=== PATIENT | female | born 1975 | race Caucasian/White ===

== ENCOUNTER 2019-04-11 15:40 | Inpatient (IN) | payer BC ==
[~2019-04-11] VITALS: Ht 177.8 cm; Wt 106.9 kg
[2019-04-12 00:30] VITALS: BP 142/80; PULSE 94; RESP 18
[2019-04-12 01:22] VITALS: Ht 177.8 cm; Wt 106.9 kg
[2019-04-12] MEDS ORDERED: ACETAMINOPHEN 325 MG TAB PO PRN (02:00)
[2019-04-12] MEDS ORDERED: PENDING SANTYL ORDER FOR WOUND CARE XX PRN (02:00)
[2019-04-12] MEDS ORDERED: LACTULOSE 30ML CUP PO PRN (02:00)
[2019-04-12] MEDS ORDERED: ALBUTEROL HFA 8 GM INHALER INH PRN (02:00)
[2019-04-12] MEDS ORDERED: BISACODYL 10 MG SUPP PR PRN (02:00)
[2019-04-12] MEDS ORDERED: MAGNESIUM HYDROXIDE 30ML CUP PO PRN (02:00)
[2019-04-12] MEDS ORDERED: METHOCARBAMOL 500 MG TAB PO ONE (02:00)
[2019-04-12] MEDS ORDERED: HYDROmorphONE 0.5 MG/0.5 ML SYG IV PRN (02:00)
[2019-04-12] MEDS: OXYCODONE/ACETAMINOPHEN (5/325) TAB PO PRN ×5 (02:25→22:40)
[2019-04-12 03:22] VITALS: BP 110/60; PULSE 64; RESP 18
[2019-04-12] MEDS: GABAPENTIN 300 MG CAP PO SCH ×3 (06:20→22:05)
[2019-04-12] MEDS: LEVOTHYROXINE 175 MCG TAB PO SCH (06:20)
[2019-04-12 07:30] VITALS: BP 147/83; PULSE 92; RESP 18
[2019-04-12] MEDS: DOCUSATE SODIUM 100 MG CAP PO SCH ×2 (08:38→22:05)
[2019-04-12] MEDS: POLYETHYLENE GLYCOL 17 GM PACKET PO SCH (08:38)
[2019-04-12] MEDS: FAMOTIDINE 20 MG TAB PO SCH ×2 (08:39→22:05)
[2019-04-12] MEDS ORDERED: FERROUS SULFATE (EC) 325 MG TAB PO SCH (09:00)
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
[2019-04-12 14:00] VITALS: BP 136/78; PULSE 86; RESP 20
[2019-04-12 19:57] VITALS: BP 120/69; PULSE 90; RESP 18
[2019-04-12] MEDS: FERROUS SULFATE (EC) 325 MG TAB PO SCH (22:05)
[2019-04-12] MEDS: SENNA TAB PO SCH (22:05)
[2019-04-13 02:00] VITALS: BP 138/67; PULSE 93; RESP 18
[2019-04-13] MEDS: OXYCODONE/ACETAMINOPHEN (5/325) TAB PO PRN ×5 (02:58→22:34)
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
[2019-04-13] MEDS: LEVOTHYROXINE 175 MCG TAB PO SCH (06:51)
[2019-04-13] MEDS: GABAPENTIN 300 MG CAP PO SCH ×3 (06:51→21:43)
[2019-04-13 07:37] VITALS: BP 125/77; PULSE 92; RESP 20
[2019-04-13] MEDS: POLYETHYLENE GLYCOL 17 GM PACKET PO SCH (08:50)
[2019-04-13] MEDS: DOCUSATE SODIUM 100 MG CAP PO SCH ×2 (08:50→21:43)
[2019-04-13] MEDS: METHOCARBAMOL 750 MG TAB PO PRN (08:50)
[2019-04-13] MEDS: FERROUS SULFATE (EC) 325 MG TAB PO SCH ×2 (08:51→21:43)
[2019-04-13] MEDS: FAMOTIDINE 20 MG TAB PO SCH ×2 (08:51→21:43)
--- NOTE | 2019-04-13 12:50 | PN ---
Date/Time of Note Date/Time of Note DATE: 04/13/19 TIME: 12:39 Objective Vital Signs Date Temp Pulse Resp B/P (MAP) Pulse Ox O2 O2 Flow FiO2 Time Delivery Rate 04/13/19 98.0 92 20 125/77 97 Room Air 07:37 (93) Intake and Output 04/12/19 04/12/19 04/13/19 1414:59 22:59 06:59 IntakeIntake Total 680 ml 790 ml BalanceBalance 680 ml 790 ml Exam INTERDISCIPLINARY TEAM CONFERENCE Attended by PT, OT, ST, Social Work, Rehabilitation Nursing, Handicrafts Teacher and Corporate ExecutiveGround Helper [employer] Railway Exam: Pulm- cta Abd- soft BOWEL- Cont BLADDER-Cont SKIN- multiple abrasions, residual limb dressing in place OT- DRESSING- sba/mod BATHING- mod TOILETING- mod PT- BED MOBILITY-cga TRANSFERS-cga WHEELCHAIR-min A/P- Interdisciplinary team conference held today. Please see interdisciplinary sheet. Working toward d.c. on 04/26 with post discharge follow up of physical therapy, occupational therapy. Results/Medications Result Diagram: 04/12/19 0639 04/12/19 0639 Medications Current Medications Docusate Sodium (Colace) 100 mg BID PO Last administered on 04/13/19at 08:50; Admin Dose 100 MG; Start 04/12/19 at 09:00 Senna (Senokot) 1 tab HS PO Last administered on 04/12/19at 22:05; Admin Dose 1 TAB; Start 04/12/19 at 21:00 Magnesium Hydroxide (Milk Of Mag) 30 ml BID PRN PO CONSTIPATION; Start 04/12/19 at 02:00 Lactulose (Enulose) 20 gm DAILY PRN PO CONSTIPATION; Start 04/12/19 at 02:00 Bisacodyl (Dulcolax Supp) 10 mg DAILY PRN [place] CONSTIPATION; Start 04/12/19 at 02:00 Acetaminophen (Tylenol Tab) 650 mg Q4H PRN PO PAIN; Start 04/12/19 at 02:00 [facility] This patient ovalle... PRN PRN XX WOUND CARE; Start 04/12/19 at 02:00 Hydromorphone HCl (Dilaudid) 0.5 mg Q6H PRN IV BREAKTHROUGH PAIN; Start 04/12/19 at 02:00 Oxycodone/ Acetaminophen (Percocet (5/ 325)) 2 tab Q4H PRN PO MODERATE PAIN LEVEL 4-6 Last administered on 04/13/19at 11:00; Admin Dose 2 TAB; Start 04/12/19 at 02:00 Famotidine (Pepcid) 20 mg BID PO Last administered on 04/13/19 08:51; Admin Dose 20 MG; Start 04/12/19 at 09:00 Albuterol (Ventolin Hfa) 2 puff Q4H RESP THERAPY PRN INH SHORTNESS OF BREATH; Start 04/12/19 at 02:00 Gabapentin (Neurontin) 300 mg Q8 PO Last administered on 04/13/19 06:51; Admin Dose 300 MG; Start 04/12/19 at 06:00 Levothyroxine Sodium (Synthroid) 175 mcg DAILY@06 PO Last administered on 04/13/19 06:51; Admin Dose 175 MCG; Start 04/12/19 at 06:00 Polyethylene Glycol (Miralax) 17 gm DAILY PO Last administered on 04/13/19 08:50; Admin Dose 17 GM; Start 04/12/19 at 09:00 Methocarbamol (Robaxin) 750 mg TID PRN PO MUSCLE SPASMS Last administered on 04/13/19 08:50; Admin Dose 750 MG; Start 04/12/19 at 12:00 Ferrous Sulfate (Ferrous Sulfate (Ec)) 325 mg BID PO Last administered on 04/13/19 08:51; Admin Dose 325 MG; Start 04/12/19 at 21:00 Oxycodone HCl (Oxycontin) 10 mg TID PO ; Start 04/13/19 at 13:00 ANJELICA CANCHOLA MD Apr 13, 2019 12:50
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
[2019-04-13] MEDS: oxyCODONE (CR) 10 MG TAB [oxyCONTIN] PO SCH ×2 (14:24→21:43)
[2019-04-13 14:41] VITALS: BP 132/72; PULSE 89; RESP 20
[2019-04-13 19:46] VITALS: BP 119/64; PULSE 92; RESP 17
[2019-04-13] MEDS: SENNA TAB PO SCH (21:44)
[2019-04-14] MEDS: OXYCODONE/ACETAMINOPHEN (5/325) TAB PO PRN ×4 (04:46→19:36)
[2019-04-14] MEDS: GABAPENTIN 300 MG CAP PO SCH ×3 (06:07→21:00)
[2019-04-14] MEDS: LEVOTHYROXINE 175 MCG TAB PO SCH (06:07)
[2019-04-14 07:30] VITALS: BP 117/74; PULSE 92; RESP 20
[2019-04-14] MEDS: DOCUSATE SODIUM 100 MG CAP PO SCH ×2 (09:27→20:54)
[2019-04-14] MEDS: FERROUS SULFATE (EC) 325 MG TAB PO SCH ×2 (09:27→20:54)
[2019-04-14] MEDS: FAMOTIDINE 20 MG TAB PO SCH ×2 (09:27→20:54)
[2019-04-14] MEDS: oxyCODONE (CR) 10 MG TAB [oxyCONTIN] PO SCH ×3 (09:27→20:54)
[2019-04-14] MEDS: POLYETHYLENE GLYCOL 17 GM PACKET PO SCH (09:28)
[2019-04-14 14:00] VITALS: BP 140/81; PULSE 94; RESP 18
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
[2019-04-14 20:22] VITALS: BP 135/79; PULSE 99; RESP 18
[2019-04-14] MEDS: SENNA TAB PO SCH (20:54)
[2019-04-15 02:00] VITALS: BP 128/74; PULSE 95; RESP 18
[2019-04-15] MEDS: GABAPENTIN 300 MG CAP PO SCH ×3 (06:16→21:07)
[2019-04-15] MEDS: LEVOTHYROXINE 175 MCG TAB PO SCH (06:16)
[2019-04-15] MEDS: OXYCODONE/ACETAMINOPHEN (5/325) TAB PO PRN ×2 (06:16→22:52)
[2019-04-15 07:00] VITALS: BP 135/72; PULSE 98; RESP 18
[2019-04-15] MEDS: FAMOTIDINE 20 MG TAB PO SCH ×2 (08:54→21:08)
[2019-04-15] MEDS: DOCUSATE SODIUM 100 MG CAP PO SCH ×2 (08:55→21:08)
[2019-04-15] MEDS: FERROUS SULFATE (EC) 325 MG TAB PO SCH ×2 (08:55→21:07)
[2019-04-15] MEDS: oxyCODONE (CR) 10 MG TAB [oxyCONTIN] PO SCH ×3 (09:54→21:10)
[2019-04-15] MEDS: POLYETHYLENE GLYCOL 17 GM PACKET PO SCH (09:55)
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
[2019-04-15] MEDS ORDERED: VANCOMYCIN 1.5 GM/NS 250 ML 250 ML IVPB SCH (10:30)
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
[2019-04-15 14:00] VITALS: BP 143/89; PULSE 101; RESP 18
[2019-04-15] MEDS ORDERED: VANCOMYCIN IV PER PHARMACY XX SCH (17:30)
[2019-04-15 19:49] VITALS: BP 126/74; PULSE 98; RESP 18
[2019-04-15] MEDS: SENNA TAB PO SCH (21:07)
[2019-04-15] MEDS ORDERED: VANCOMYCIN HCL 2 GM in SOD CHLORIDE 0.9% 500 ML IVPB ONE (22:30)
[2019-04-15] MEDS: CEFEPIME 1GM/50 ML (PMX) 50 ML IVPB SCH (23:28)
[2019-04-16 02:00] VITALS: BP 129/82; PULSE 99; RESP 18
[2019-04-16] MEDS: OXYCODONE/ACETAMINOPHEN (5/325) TAB PO PRN ×3 (03:38→22:19)
[2019-04-16] MEDS: LEVOTHYROXINE 175 MCG TAB PO SCH (06:53)
[2019-04-16] MEDS: GABAPENTIN 300 MG CAP PO SCH ×3 (06:53→21:11)
[2019-04-16 07:00] VITALS: BP 118/79; PULSE 99; RESP 18
[2019-04-16] MEDS: CEFEPIME 1GM/50 ML (PMX) 50 ML IVPB SCH ×2 (08:34→21:15)
[2019-04-16] MEDS: FAMOTIDINE 20 MG TAB PO SCH ×2 (08:44→21:07)
[2019-04-16] MEDS: FERROUS SULFATE (EC) 325 MG TAB PO SCH ×2 (08:47→21:07)
[2019-04-16] MEDS: oxyCODONE (CR) 10 MG TAB [oxyCONTIN] PO SCH ×3 (08:47→21:07)
[2019-04-16] MEDS: POLYETHYLENE GLYCOL 17 GM PACKET PO SCH (08:47)
[2019-04-16] MEDS: DOCUSATE SODIUM 100 MG CAP PO SCH ×2 (08:48→21:06)
[2019-04-16] MEDS ORDERED: VANCOMYCIN 1.5 GM/NS 250 ML 250 ML IVPB SCH (10:30)
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
[2019-04-16] MEDS: VANCOMYCIN 1.5 GM/NS 250 ML 250 ML IVPB SCH ×2 (10:38→23:05)
[2019-04-16 14:00] VITALS: BP 110/80; PULSE 90; RESP 18
[2019-04-16 20:00] VITALS: BP 121/80; PULSE 96; RESP 18
[2019-04-16] MEDS: SACCHAROMYCES BOULARDII 250 MG CAP PO SCH (21:07)
[2019-04-16] MEDS: SENNA TAB PO SCH (21:07)
[2019-04-16] MEDS: METHOCARBAMOL 750 MG TAB PO PRN (21:11)
[2019-04-17 02:00] VITALS: BP 122/70; PULSE 89; RESP 18
[2019-04-17] MEDS: OXYCODONE/ACETAMINOPHEN (5/325) TAB PO PRN ×3 (03:05→20:47)
[2019-04-17] MEDS: GABAPENTIN 300 MG CAP PO SCH ×3 (06:16→20:55)
[2019-04-17] MEDS: LEVOTHYROXINE 175 MCG TAB PO SCH (06:16)
[2019-04-17 07:00] VITALS: BP 117/57; PULSE 85; RESP 18
[2019-04-17] MEDS: CEFEPIME 1GM/50 ML (PMX) 50 ML IVPB SCH (08:39)
[2019-04-17] MEDS: FAMOTIDINE 20 MG TAB PO SCH ×2 (08:39→20:45)
[2019-04-17] MEDS: FERROUS SULFATE (EC) 325 MG TAB PO SCH ×2 (08:39→20:45)
[2019-04-17] MEDS: SACCHAROMYCES BOULARDII 250 MG CAP PO SCH ×2 (08:39→20:45)
[2019-04-17] MEDS: oxyCODONE (CR) 10 MG TAB [oxyCONTIN] PO SCH ×3 (08:39→21:10)
[2019-04-17] MEDS: DOCUSATE SODIUM 100 MG CAP PO SCH ×2 (08:46→20:45)
[2019-04-17] MEDS: POLYETHYLENE GLYCOL 17 GM PACKET PO SCH (08:47)
[2019-04-17] MEDS ORDERED: VANCOMYCIN LEVEL TROUGH*RX DRUG LEVEL ORDER REMINDER XX ONE (09:30)
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
[2019-04-17] MEDS: VANCOMYCIN 1.5 GM/NS 250 ML 250 ML IVPB SCH (11:39)
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
[2019-04-17 14:00] VITALS: BP 138/84; PULSE 87; RESP 18
[2019-04-17 19:50] VITALS: BP 141/71; PULSE 83; RESP 18
[2019-04-17] MEDS: SENNA TAB PO SCH (20:45)
[2019-04-18 02:28] VITALS: BP 124/74; PULSE 99; RESP 18
[2019-04-18] MEDS: OXYCODONE/ACETAMINOPHEN (5/325) TAB PO PRN ×4 (04:29→19:47)
[2019-04-18] MEDS: GABAPENTIN 300 MG CAP PO SCH ×3 (06:08→21:05)
[2019-04-18] MEDS: LEVOTHYROXINE 175 MCG TAB PO SCH (06:08)
[2019-04-18 07:30] VITALS: BP 127/76; PULSE 95; RESP 18
[2019-04-18] MEDS: SACCHAROMYCES BOULARDII 250 MG CAP PO SCH ×2 (08:42→21:05)
[2019-04-18] MEDS: DOCUSATE SODIUM 100 MG CAP PO SCH ×2 (08:42→21:05)
[2019-04-18] MEDS: FAMOTIDINE 20 MG TAB PO SCH ×2 (08:42→21:05)
[2019-04-18] MEDS: POLYETHYLENE GLYCOL 17 GM PACKET PO SCH (08:44)
[2019-04-18] MEDS: FERROUS SULFATE (EC) 325 MG TAB PO SCH ×2 (08:44→21:05)
[2019-04-18] MEDS: oxyCODONE (CR) 10 MG TAB [oxyCONTIN] PO SCH ×3 (09:55→21:06)
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
[2019-04-18 14:00] VITALS: BP 127/81; PULSE 98; RESP 18
[2019-04-18 20:20] VITALS: BP 126/82; PULSE 99; RESP 18
[2019-04-18] MEDS: SENNA TAB PO SCH (21:05)
[2019-04-19] MEDS: OXYCODONE/ACETAMINOPHEN (5/325) TAB PO PRN ×5 (00:53→19:51)
[2019-04-19 02:32] VITALS: BP 119/76; PULSE 108; RESP 18
[2019-04-19] MEDS: LEVOTHYROXINE 175 MCG TAB PO SCH (04:59)
[2019-04-19] MEDS: GABAPENTIN 300 MG CAP PO SCH ×3 (04:59→21:57)
[2019-04-19] MEDS: POLYETHYLENE GLYCOL 17 GM PACKET PO SCH (08:51)
[2019-04-19 08:52] VITALS: BP 121/63; PULSE 89; RESP 19
[2019-04-19] MEDS: FAMOTIDINE 20 MG TAB PO SCH ×2 (08:52→20:28)
[2019-04-19] MEDS: oxyCODONE (CR) 10 MG TAB [oxyCONTIN] PO SCH ×3 (08:52→21:58)
[2019-04-19] MEDS: FERROUS SULFATE (EC) 325 MG TAB PO SCH ×2 (08:52→20:28)
[2019-04-19] MEDS: SACCHAROMYCES BOULARDII 250 MG CAP PO SCH ×2 (08:52→20:31)
[2019-04-19] MEDS: DOCUSATE SODIUM 100 MG CAP PO SCH ×2 (08:52→20:28)
[2019-04-19] MEDS: METHOCARBAMOL 750 MG TAB PO PRN (08:52)
[2019-04-19] MEDS: MULTIVITAMINS THERAPEUTIC TAB PO SCH (11:00)
[2019-04-19] MEDS: ASCORBIC ACID 500 MG TAB PO SCH (11:00)
[2019-04-19] MEDS: ZINC SULFATE 220 MG CAP PO SCH (11:00)
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
[2019-04-19 14:00] VITALS: BP 118/79; PULSE 75; RESP 20
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
[2019-04-19 20:00] VITALS: BP 126/80; PULSE 81; RESP 19
[2019-04-19] MEDS: SENNA TAB PO SCH (20:28)
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
[2019-04-20] MEDS: OXYCODONE/ACETAMINOPHEN (5/325) TAB PO PRN ×4 (01:56→20:44)
[2019-04-20] MEDS: METHOCARBAMOL 750 MG TAB PO PRN (01:56)
[2019-04-20 02:00] VITALS: BP 121/77; PULSE 75; RESP 18
[2019-04-20] MEDS: oxyCODONE (CR) 10 MG TAB [oxyCONTIN] PO SCH ×3 (06:45→22:43)
[2019-04-20] MEDS: GABAPENTIN 300 MG CAP PO SCH ×3 (06:45→22:42)
[2019-04-20] MEDS: LEVOTHYROXINE 175 MCG TAB PO SCH (06:45)
[2019-04-20 08:00] VITALS: BP 134/89; PULSE 96; RESP 16
[2019-04-20] MEDS: DOCUSATE SODIUM 100 MG CAP PO SCH ×2 (08:39→20:45)
[2019-04-20] MEDS: ZINC SULFATE 220 MG CAP PO SCH (08:40)
[2019-04-20] MEDS: SACCHAROMYCES BOULARDII 250 MG CAP PO SCH ×2 (08:40→20:46)
[2019-04-20] MEDS: FERROUS SULFATE (EC) 325 MG TAB PO SCH ×2 (08:40→20:45)
[2019-04-20] MEDS: ASCORBIC ACID 500 MG TAB PO SCH (08:40)
[2019-04-20] MEDS: MULTIVITAMINS THERAPEUTIC TAB PO SCH (08:40)
[2019-04-20] MEDS: FAMOTIDINE 20 MG TAB PO SCH ×2 (08:41→20:45)
[2019-04-20] MEDS: POLYETHYLENE GLYCOL 17 GM PACKET PO SCH (09:00)
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
[2019-04-20] MEDS: DULOXETINE 30 MG CAP DR PO SCH (12:18)
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
[2019-04-20 19:48] VITALS: BP 132/75; PULSE 79; RESP 18
[2019-04-20] MEDS: SENNA TAB PO SCH (20:45)
[2019-04-21 02:00] VITALS: BP 128/73; PULSE 75; RESP 18
[2019-04-21] MEDS: OXYCODONE/ACETAMINOPHEN (5/325) TAB PO PRN ×5 (04:04→23:19)
[2019-04-21] MEDS: GABAPENTIN 300 MG CAP PO SCH ×3 (06:21→21:18)
[2019-04-21] MEDS: LEVOTHYROXINE 175 MCG TAB PO SCH (06:21)
[2019-04-21] MEDS: oxyCODONE (CR) 10 MG TAB [oxyCONTIN] PO SCH ×3 (06:25→21:19)
[2019-04-21 08:00] VITALS: BP 128/71; PULSE 88; RESP 18
[2019-04-21] MEDS: MULTIVITAMINS THERAPEUTIC TAB PO SCH (08:23)
[2019-04-21] MEDS: FAMOTIDINE 20 MG TAB PO SCH ×2 (08:24→21:18)
[2019-04-21] MEDS: ASCORBIC ACID 500 MG TAB PO SCH (08:24)
[2019-04-21] MEDS: DOCUSATE SODIUM 100 MG CAP PO SCH ×2 (08:24→21:18)
[2019-04-21] MEDS: ZINC SULFATE 220 MG CAP PO SCH (08:24)
[2019-04-21] MEDS: SACCHAROMYCES BOULARDII 250 MG CAP PO SCH ×2 (08:24→21:18)
[2019-04-21] MEDS: DULOXETINE 30 MG CAP DR PO SCH (08:24)
[2019-04-21] MEDS: FERROUS SULFATE (EC) 325 MG TAB PO SCH ×2 (08:24→21:18)
[2019-04-21] MEDS: POLYETHYLENE GLYCOL 17 GM PACKET PO SCH (08:25)
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
[2019-04-21 14:20] VITALS: BP 141/74; PULSE 85; RESP 18
[2019-04-21 19:26] VITALS: BP 139/73; PULSE 85; RESP 18
[2019-04-21] MEDS: SENNA TAB PO SCH (21:18)
[2019-04-21] MEDS: METHOCARBAMOL 750 MG TAB PO PRN (23:19)
[2019-04-22 02:00] VITALS: BP 128/78; PULSE 78; RESP 18
[2019-04-22] MEDS: OXYCODONE/ACETAMINOPHEN (5/325) TAB PO PRN ×4 (04:40→18:20)
[2019-04-22] MEDS: LEVOTHYROXINE 175 MCG TAB PO SCH (06:42)
[2019-04-22] MEDS: oxyCODONE (CR) 10 MG TAB [oxyCONTIN] PO SCH ×3 (06:42→21:46)
[2019-04-22] MEDS: GABAPENTIN 300 MG CAP PO SCH ×3 (06:42→21:44)
[2019-04-22 08:26] VITALS: BP 119/72; PULSE 91; RESP 18
[2019-04-22] MEDS: POLYETHYLENE GLYCOL 17 GM PACKET PO SCH (09:05)
[2019-04-22] MEDS: ZINC SULFATE 220 MG CAP PO SCH (09:05)
[2019-04-22] MEDS: MULTIVITAMINS THERAPEUTIC TAB PO SCH (09:05)
[2019-04-22] MEDS: DOCUSATE SODIUM 100 MG CAP PO SCH ×2 (09:06→21:46)
[2019-04-22] MEDS: FERROUS SULFATE (EC) 325 MG TAB PO SCH ×2 (09:06→21:45)
[2019-04-22] MEDS: METHOCARBAMOL 750 MG TAB PO PRN (09:06)
[2019-04-22] MEDS: ASCORBIC ACID 500 MG TAB PO SCH ×2 (09:06→21:45)
[2019-04-22] MEDS: FAMOTIDINE 20 MG TAB PO SCH ×2 (09:06→21:46)
[2019-04-22] MEDS: DULOXETINE 30 MG CAP DR PO SCH (09:06)
[2019-04-22] MEDS: SACCHAROMYCES BOULARDII 250 MG CAP PO SCH ×2 (09:06→21:45)
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
--- NOTE | 2019-04-22 12:44 | PN ---
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 Continue with rehabilitation protocol Qualifiers: Encounter type: subsequent encounter Qualified Codes: S78.111D - Complete traumatic amputation at level between right hip and knee, subsequent encounter (2) Left peroneal tendonosis Status: Acute Comment: Noted. Please see notes from rehabilitation medicine (3) Asthma, mild persistent Status: Chronic Comment: Noted and stable at this time Qualifiers: Asthma complication type: uncomplicated Qualified Codes: J45.30 - Mild persistent asthma, uncomplicated (4) Hypothyroidism Status: Chronic Comment: She needs to have higher dosage of levothyroxine 175 mcg. Qualifiers: Hypothyroidism type: due to [place]'s thyroiditis Qualified Codes: E03.8 - Other specified hypothyroidism; E06.3 - Autoimmune thyroiditis (5) Depression Status: Acute Comment: On treatment Qualifiers: Depression Type: reactive depression Qualified Codes: F32.9 - Major depressive disorder, single episode, unspecified (6) Iron deficiency anemia Status: Acute Comment: On replacement therapy with Horizon in the order Qualifiers: Iron deficiency anemia type: other iron deficiency Qualified Codes: D50.8 - Other iron deficiency anemias (7) Methamphetamine abuse Comment: She reports she is a long-term clean and sober. Check serologies for safety Result Diagram: 04/21/19 1219 Subjective 24 Hr Interval Summary Free Text/Dictation Patient reports her pain is coming under control. Constitutional: no complaints (No fevers chills or sweats) Respiratory: no complaints Cardiovascular: no complaints Gastrointestinal: no complaints Musculoskeletal: other (Aching pain at ) Neurologic: no complaints Exam/Review of Systems Exam Vitals Vital Signs Date Temp Pulse Resp B/P (MAP) Pulse Ox O2 O2 Flow FiO2 Time Delivery Rate 04/22/19 98.3 91 18 119/72 98 08:26 (88) 04/22/19 Room Air 02:00 Intake and Output 04/21/19 04/21/19 04/22/19 1515:00 23:00 07:00 IntakeIntake Total 760 ml 300 ml 400 ml BalanceBalance 760 ml 300 ml 400 ml Constitutional: alert, oriented Neck: supple, non-tender Respiratory: clear to auscultation, normal air movement Cardiovascular: regular rate and rhythm, nl pulses Gastrointestinal: soft, nl liver, spleen, non-tender Medications Medication Current Medications Docusate Sodium (Colace) 100 mg BID PO Last administered on 04/22/19 09:06; Admin Dose 100 MG; Start 04/12/19 at 09:00 Senna (Senokot) 1 tab HS PO Last administered on 04/21/19 21:18; Admin Dose 1 TAB; Start 04/12/19 at 21:00 Magnesium Hydroxide (Milk Of Mag) 30 ml BID PRN PO CONSTIPATION; Start 04/12/19 at 02:00 Lactulose (Enulose) 20 gm DAILY PRN PO CONSTIPATION Last administered on 04/14/19 14:12; Admin Dose 20 GM; Start 04/12/19 at 02:00 Bisacodyl (Dulcolax Supp) 10 mg DAILY PRN [place] CONSTIPATION Last administered on 04/14/19 15:10; Admin Dose 10 MG; Start 04/12/19 at 02:00 Acetaminophen (Tylenol Tab) 650 mg Q4H PRN PO PAIN; Start 04/12/19 at 02:00 [facility] This patient ovalle... PRN PRN XX WOUND CARE; Start 04/12/19 at 02:00 Oxycodone/ Acetaminophen (Percocet (5/ 325)) 2 tab Q4H PRN PO MODERATE PAIN LEVEL 4-6 Last administered on 04/22/19 09:06; Admin Dose 2 TAB; Start 04/12/19 at 02:00 Famotidine (Pepcid) 20 mg BID PO Last administered on 04/22/19 09:06; Admin Dose 20 MG; Start 04/12/19 at 09:00 Albuterol (Ventolin Hfa) 2 puff Q4H RESP THERAPY PRN INH SHORTNESS OF BREATH; Start 04/12/19 at 02:00 Gabapentin (Neurontin) 300 mg Q8 PO Last administered on 04/22/19at 06:42; Admin Dose 300 MG; Start 04/12/19 at 06:00 Levothyroxine Sodium (Synthroid) 175 mcg DAILY@06 PO Last administered on 04/22/19 06:42; Admin Dose 175 MCG; Start 04/12/19 at 06:00 Polyethylene Glycol (Miralax) 17 gm DAILY PO Last administered on 04/22/19 09:05; Admin Dose 17 GM; Start 04/12/19 at 09:00 Methocarbamol (Robaxin) 750 mg TID PRN PO MUSCLE SPASMS Last administered on 04/22/19 09:06; Admin Dose 750 MG; Start 04/12/19 at 12:00 Ferrous Sulfate (Ferrous Sulfate (Ec)) 325 mg BID PO Last administered on 04/22/19 09:06; Admin Dose 325 MG; Start 04/12/19 at 21:00; Stop 05/12/19 at 20:59 Saccharomyces Boulardii (Florastor) 250 mg BID PO Last administered on 04/22/19 09:06; Admin Dose 250 MG; Start 04/16/19 at 21:00 Multivitamins Therapeutic (Theragran) 1 tab DAILY PO Last administered on 04/22/19 09:05; Admin Dose 1 TAB; Start 04/19/19 at 11:00 Zinc Sulfate (Zinc Sulfate) 220 mg DAILY PO Last administered on 04/22/19 09:05; Admin Dose 220 MG; Start 04/19/19 at 11:00 Oxycodone HCl (Oxycontin) 10 mg Q8 PO Last administered on 04/22/19 06:42; Admin Dose 10 MG; Start 04/19/19 at 14:00 Duloxetine HCl (Cymbalta) 30 mg DAILY PO Last administered on 04/22/19 09:06; Admin Dose 30 MG; Start 04/20/19 at 12:00 Ascorbic Acid (Vitamin C) 1,000 mg BID PO ; Start 04/22/19 at 21:00; Stop 05/22/19 at 20:59 YASIR ALLEN MD Apr 22, 2019 12:44
[2019-04-22 13:48] VITALS: BP 128/71; PULSE 85; RESP 18
[2019-04-22 19:20] VITALS: BP 130/75; PULSE 94; RESP 18
[2019-04-22] MEDS: SENNA TAB PO SCH (21:45)
[2019-04-23 02:00] VITALS: BP 130/81; PULSE 81; RESP 18
[2019-04-23] MEDS: OXYCODONE/ACETAMINOPHEN (5/325) TAB PO PRN ×5 (04:38→20:54)
[2019-04-23] MEDS: GABAPENTIN 300 MG CAP PO SCH ×3 (06:45→22:08)
[2019-04-23] MEDS: LEVOTHYROXINE 175 MCG TAB PO SCH (06:45)
[2019-04-23] MEDS: oxyCODONE (CR) 10 MG TAB [oxyCONTIN] PO SCH ×3 (06:46→22:08)
[2019-04-23 07:00] VITALS: BP 140/87; PULSE 97; RESP 18
[2019-04-23] MEDS: FAMOTIDINE 20 MG TAB PO SCH ×2 (08:58→20:54)
[2019-04-23] MEDS: FERROUS SULFATE (EC) 325 MG TAB PO SCH ×2 (08:58→20:53)
[2019-04-23] MEDS: ASCORBIC ACID 500 MG TAB PO SCH ×2 (08:58→20:53)
[2019-04-23] MEDS: DULOXETINE 30 MG CAP DR PO SCH (08:58)
[2019-04-23] MEDS: POLYETHYLENE GLYCOL 17 GM PACKET PO SCH (08:58)
[2019-04-23] MEDS: METHOCARBAMOL 750 MG TAB PO PRN (08:59)
[2019-04-23] MEDS: ZINC SULFATE 220 MG CAP PO SCH (08:59)
[2019-04-23] MEDS: MULTIVITAMINS THERAPEUTIC TAB PO SCH (08:59)
[2019-04-23] MEDS: SACCHAROMYCES BOULARDII 250 MG CAP PO SCH ×2 (08:59→20:53)
[2019-04-23] MEDS: DOCUSATE SODIUM 100 MG CAP PO SCH ×2 (08:59→20:53)
--- NOTE | 2019-04-23 11:18 | PN ---
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 Qualifiers: Encounter type: subsequent encounter Qualified Codes: S78.111D - Complete traumatic amputation at level between right hip and knee, subsequent encounter (2) Iron deficiency anemia Status: Acute Comment: Stable on replacement therapy Qualifiers: Iron deficiency anemia type: other iron deficiency Qualified Codes: D50.8 - Other iron deficiency anemias (3) Hypothyroidism Status: Chronic Comment: Replacement therapy. Ultrasound without abnormalities Qualifiers: Hypothyroidism type: due to [place]'s thyroiditis Qualified Codes: E03.8 - Other specified hypothyroidism; E06.3 - Autoimmune thyroiditis Result Diagram: 04/21/19 1219 Subjective 24 Hr Interval Summary Free Text/Dictation Patient is in general good spirits but still has moments of dysthymia Constitutional: no complaints ENT: no complaints Respiratory: no complaints Cardiovascular: no complaints Gastrointestinal: no complaints Exam/Review of Systems Exam Vitals Vital Signs Date Temp Pulse Resp B/P (MAP) Pulse Ox O2 O2 Flow FiO2 Time Delivery Rate 04/23/19 98.0 97 18 140/87 Room Air 07:00 (104) 04/23/19 98 02:00 Intake and Output 04/22/19 04/22/19 04/23/19 1515:00 23:00 07:00 IntakeIntake Total 900 ml 400 ml 500 ml BalanceBalance 900 ml 400 ml 500 ml Constitutional: alert, oriented Respiratory: clear to auscultation, normal air movement Cardiovascular: regular rate and rhythm, nl pulses Gastrointestinal: soft, nl liver, spleen, non-tender Medications Medication Current Medications Docusate Sodium (Colace) 100 mg BID PO Last administered on 04/23/19at 08:59; Admin Dose 100 MG; Start 04/12/19 at 09:00 Senna (Senokot) 1 tab HS PO Last administered on 04/22/19at 21:45; Admin Dose 1 TAB; Start 04/12/19 at 21:00 Magnesium Hydroxide (Milk Of Mag) 30 ml BID PRN PO CONSTIPATION; Start 04/12/19 at 02:00 Lactulose (Enulose) 20 gm DAILY PRN PO CONSTIPATION Last administered on 04/14/19 14:12; Admin Dose 20 GM; Start 04/12/19 at 02:00 Bisacodyl (Dulcolax Supp) 10 mg DAILY PRN [place] CONSTIPATION Last administered on 04/14/19 15:10; Admin Dose 10 MG; Start 04/12/19 at 02:00 Acetaminophen (Tylenol Tab) 650 mg Q4H PRN PO PAIN; Start 04/12/19 at 02:00 Miscellaneous Information (Pending [facility] Order For Wound Care) This patient ovalle... PRN PRN XX WOUND CARE; Start 04/12/19 at 02:00 Oxycodone/ Acetaminophen (Percocet (5/ 325)) 2 tab Q4H PRN PO MODERATE PAIN LEVEL 4-6 Last administered on 04/23/19 08:59; Admin Dose 2 TAB; Start 04/12/19 at 02:00 Famotidine (Pepcid) 20 mg BID PO Last administered on 04/23/19 08:58; Admin Dose 20 MG; Start 04/12/19 at 09:00 Albuterol (Ventolin Hfa) 2 puff Q4H RESP THERAPY PRN INH SHORTNESS OF BREATH; Start 04/12/19 at 02:00 Gabapentin (Neurontin) 300 mg Q8 PO Last administered on 04/23/19 06:45; Admin Dose 300 MG; Start 04/12/19 at 06:00 Levothyroxine Sodium (Synthroid) 175 mcg DAILY@06 PO Last administered on 04/23/19 06:45; Admin Dose 175 MCG; Start 04/12/19 at 06:00 Polyethylene Glycol (Miralax) 17 gm DAILY PO Last administered on 04/23/19 08:58; Admin Dose 17 GM; Start 04/12/19 at 09:00 Methocarbamol (Robaxin) 750 mg TID PRN PO MUSCLE SPASMS Last administered on 04/23/19 08:59; Admin Dose 750 MG; Start 04/12/19 at 12:00 Ferrous Sulfate (Ferrous Sulfate (Ec)) 325 mg BID PO Last administered on 04/23/19 08:58; Admin Dose 325 MG; Start 04/12/19 at 21:00; Stop 05/22/19 at 20:59 Saccharomyces Boulardii (Florastor) 250 mg BID PO Last administered on 04/13 08:59; Admin Dose 250 MG; Start 04/16/19 at 21:00 Multivitamins Therapeutic (Theragran) 1 tab DAILY PO Last administered on 04/23/19 08:59; Admin Dose 1 TAB; Start 04/19/19 at 11:00 Zinc Sulfate (Zinc Sulfate) 220 mg DAILY PO Last administered on 04/23/19 08:59; Admin Dose 220 MG; Start 04/19/19 at 11:00 Oxycodone HCl (Oxycontin) 10 mg Q8 PO Last administered on 04/23/19 06:46; Admin Dose 10 MG; Start 04/19/19 at 14:00 Duloxetine HCl (Cymbalta) 30 mg DAILY PO Last administered on 04/23/19 08:58; Admin Dose 30 MG; Start 04/20/19 at 12:00 Ascorbic Acid (Vitamin C) 1,000 mg BID PO Last administered on 04/23/19 08:58; Admin Dose 1,000 MG; Start 04/22/19 at 21:00; Stop 05/22/19 at 20:59 YASIR ALLEN MD Apr 23, 2019 11:18
[2019-04-23 14:00] VITALS: BP 136/77; PULSE 86; RESP 18
[2019-04-23 20:00] VITALS: BP 122/87; PULSE 100; RESP 18
[2019-04-23] MEDS: SENNA TAB PO SCH (20:54)
[2019-04-24 02:00] VITALS: BP 120/73; PULSE 81; RESP 18
[2019-04-24] MEDS: OXYCODONE/ACETAMINOPHEN (5/325) TAB PO PRN ×4 (02:28→20:49)
[2019-04-24] MEDS: GABAPENTIN 300 MG CAP PO SCH ×3 (06:45→21:51)
[2019-04-24] MEDS: LEVOTHYROXINE 175 MCG TAB PO SCH (06:45)
[2019-04-24] MEDS: oxyCODONE (CR) 10 MG TAB [oxyCONTIN] PO SCH ×3 (06:46→21:51)
[2019-04-24 07:00] VITALS: BP 134/81; PULSE 96; RESP 18
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
[2019-04-24] MEDS: DULOXETINE 30 MG CAP DR PO SCH (09:19)
[2019-04-24] MEDS: ASCORBIC ACID 500 MG TAB PO SCH ×2 (09:19→21:51)
[2019-04-24] MEDS: FERROUS SULFATE (EC) 325 MG TAB PO SCH ×2 (09:19→21:52)
[2019-04-24] MEDS: MULTIVITAMINS THERAPEUTIC TAB PO SCH (09:20)
[2019-04-24] MEDS: ZINC SULFATE 220 MG CAP PO SCH (09:20)
[2019-04-24] MEDS: FAMOTIDINE 20 MG TAB PO SCH ×2 (09:20→21:51)
[2019-04-24] MEDS: DOCUSATE SODIUM 100 MG CAP PO SCH ×2 (09:20→21:51)
[2019-04-24] MEDS: SACCHAROMYCES BOULARDII 250 MG CAP PO SCH ×2 (09:20→21:51)
[2019-04-24] MEDS: POLYETHYLENE GLYCOL 17 GM PACKET PO SCH (09:20)
[2019-04-24] MEDS: CEPHALEXIN 250 MG CAP PO SCH ×3 (09:29→21:52)
[2019-04-24] MEDS: NEOMYC/POLYMYX/BACIT 30 GM OINT TOP SCH ×2 (09:29→21:54)
[2019-04-24] MEDS: METHOCARBAMOL 750 MG TAB PO PRN (12:35)
[2019-04-24 14:00] VITALS: BP 139/78; PULSE 80; RESP 18
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
[2019-04-24 20:00] VITALS: BP 118/65; PULSE 81; RESP 17
[2019-04-24] MEDS: SENNA TAB PO SCH (21:52)
[2019-04-25 02:00] VITALS: BP 100/78; PULSE 89; RESP 18
[2019-04-25] MEDS: CEPHALEXIN 250 MG CAP PO SCH (06:31)
[2019-04-25] MEDS: LEVOTHYROXINE 175 MCG TAB PO SCH (06:31)
[2019-04-25] MEDS: oxyCODONE (CR) 10 MG TAB [oxyCONTIN] PO SCH ×3 (06:31→21:43)
[2019-04-25] MEDS: GABAPENTIN 300 MG CAP PO SCH ×3 (06:32→20:15)
[2019-04-25 07:30] VITALS: BP 144/90; PULSE 89; RESP 20
[2019-04-25] MEDS: FAMOTIDINE 20 MG TAB PO SCH ×2 (08:53→20:13)
[2019-04-25] MEDS: METHOCARBAMOL 750 MG TAB PO PRN (08:53)
[2019-04-25] MEDS: POLYETHYLENE GLYCOL 17 GM PACKET PO SCH (08:53)
[2019-04-25] MEDS: DULOXETINE 30 MG CAP DR PO SCH (08:53)
[2019-04-25] MEDS: OXYCODONE/ACETAMINOPHEN (5/325) TAB PO PRN ×3 (08:53→19:43)
[2019-04-25] MEDS: ASCORBIC ACID 500 MG TAB PO SCH ×2 (08:54→20:12)
[2019-04-25] MEDS: FERROUS SULFATE (EC) 325 MG TAB PO SCH ×2 (08:54→20:12)
[2019-04-25] MEDS: DOCUSATE SODIUM 100 MG CAP PO SCH ×2 (08:54→21:00)
[2019-04-25] MEDS: SACCHAROMYCES BOULARDII 250 MG CAP PO SCH ×2 (08:54→20:13)
[2019-04-25] MEDS: ZINC SULFATE 220 MG CAP PO SCH (08:54)
[2019-04-25] MEDS: MULTIVITAMINS THERAPEUTIC TAB PO SCH (08:55)
[2019-04-25] MEDS: NEOMYC/POLYMYX/BACIT 30 GM OINT TOP SCH ×2 (08:55→20:11)
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
[2019-04-25 14:00] VITALS: BP 143/89; PULSE 91; RESP 18
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
[2019-04-25] MEDS ORDERED: VANCOMYCIN IV PER PHARMACY XX SCH (15:00)
[2019-04-25] MEDS: CEPHALEXIN 500 MG CAP PO SCH ×2 (15:06→21:43)
[2019-04-25] MEDS ORDERED: VANCOMYCIN HCL 2 GM in SOD CHLORIDE 0.9% 500 ML IVPB SCH (16:00)
[2019-04-25 20:00] VITALS: BP 110/60; PULSE 92; RESP 18
[2019-04-25] MEDS: SENNA TAB PO SCH (21:00)
[2019-04-26] MEDS: OXYCODONE/ACETAMINOPHEN (5/325) TAB PO PRN ×3 (00:20→11:15)
[2019-04-26 02:59] VITALS: BP 122/71; PULSE 70; RESP 18
[2019-04-26] MEDS: GABAPENTIN 300 MG CAP PO SCH ×2 (05:30→13:40)
[2019-04-26] MEDS: CEPHALEXIN 500 MG CAP PO SCH ×2 (05:30→13:40)
[2019-04-26] MEDS: LEVOTHYROXINE 175 MCG TAB PO SCH (05:30)
[2019-04-26] MEDS ORDERED: VANCOMYCIN 1.5 GM/NS 250 ML 250 ML IVPB SCH (06:00)
[2019-04-26] MEDS: oxyCODONE (CR) 10 MG TAB [oxyCONTIN] PO SCH ×2 (06:39→13:40)
[2019-04-26 07:30] VITALS: BP 145/89; PULSE 89; RESP 18
[2019-04-26] MEDS: MULTIVITAMINS THERAPEUTIC TAB PO SCH (08:54)
[2019-04-26] MEDS: FERROUS SULFATE (EC) 325 MG TAB PO SCH (08:54)
[2019-04-26] MEDS: METHOCARBAMOL 750 MG TAB PO PRN (08:54)
[2019-04-26] MEDS: POLYETHYLENE GLYCOL 17 GM PACKET PO SCH (08:54)
[2019-04-26] MEDS: ZINC SULFATE 220 MG CAP PO SCH (08:54)
[2019-04-26] MEDS: DOCUSATE SODIUM 100 MG CAP PO SCH (08:54)
[2019-04-26] MEDS: SACCHAROMYCES BOULARDII 250 MG CAP PO SCH (08:54)
[2019-04-26] MEDS: ASCORBIC ACID 500 MG TAB PO SCH (08:54)
[2019-04-26] MEDS: DULOXETINE 30 MG CAP DR PO SCH (08:54)
[2019-04-26] MEDS: FAMOTIDINE 20 MG TAB PO SCH (08:54)
[2019-04-26] MEDS: NEOMYC/POLYMYX/BACIT 30 GM OINT TOP SCH (08:55)
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
--- NOTE | 2019-04-26 21:59 | PN ---
DATE: 04/26/2019 PSYCHOLOGY -- INDIVIDUAL SESSION -- [id number] This is a followup on a patient who was seen last week. The patient is being discharged today. The patient did have an [id number] amputation and is trying to reconcile her emotions regarding this. The patient is going to return home. The patient reported that she had been in psychotherapy off a nd on most of her life. The patient did agree with this procurement consultant that she would seek out psychothe rapy dealing with all the issues she was confronting after discharge. The patient's mood was positiv e about trying to learn to cope, but she did state that she was extremely frightened about having to deal with all the issues that she is facing. I worked with the patient supportively to try to help h er be that she can continue on and recover if she works on all of her emotional issues as well as her physical issues. Dictated By: NURYS RODAS PHD NKECHI/DEBI Conf#: [id number] DID#: [id number]
== END 2019-04-26 16:00 | disposition home health service (06) | DRG 561 ==
LOC: VRC 04-12 00:03
PROVIDERS: ADMIT Physical Medicine & Rehabilitation; ATTEND Internal Medicine Pulmonary Disease
PROC: F07Z5ZZ Bed Mobility Treatment (ICD-10-PCS; principal; 2019-04-12)
PROC: F08Z2ZZ Grooming/Personal Hygiene Treatment (ICD-10-PCS; 2019-04-12)
DX: Z47.81 Encounter for orthopedic aftercare following surgical amputation (principal); Z89.611 Acquired absence of right leg above knee; S86.312D Strain of muscle(s) and tendon(s) of peroneal muscle group at lower leg level, left leg, subsequent encounter; D50.0 Iron deficiency anemia secondary to blood loss (chronic); E66.9 Obesity, unspecified; Z68.33 Body mass index [BMI] 33.0-33.9, adult; J45.909 Unspecified asthma, uncomplicated; F19.10 Other psychoactive substance abuse, uncomplicated; E06.3 Autoimmune thyroiditis; V89.2XXD Person injured in unspecified motor-vehicle accident, traffic, subsequent encounter; F06.31 Mood disorder due to known physiological condition with depressive features; F43.10 Post-traumatic stress disorder, unspecified; F15.10 Other stimulant abuse, uncomplicated
CPT/HCPCS: 73550; 73562; 76536; 80053; 80202; 81001; 82565; 82607; 82728; 82746; 83540; 84436; 84443; 84479; 84520; 85025; 86592; 86803; 87070; 87081; 87086; 87340; 92523; 93971; 97110; 97116; 97163; 97167; 97530; 97535; 97542; J0692; J1170; J3370; J7040; L4360-LT